=== PATIENT | female | born 2000 | race Hispanic/Latino ===

== ENCOUNTER 2025-01-23 20:23 | Outpatient (CLI) ==
[~2025-01-23] VITALS: Ht 157.5 cm; Wt 78.0 kg
[2025-01-23 20:45] VITALS: BP 128/71
== END 2025-01-23 21:15 | disposition home or self-care (01) ==
LOC: M LDO 20:23
PROVIDERS: ATTEND Advanced Practice Midwife
DX: O26.893 Other specified pregnancy related conditions, third trimester (principal); R10.30 Lower abdominal pain, unspecified; M54.50 Low back pain, unspecified; Z3A.37 37 weeks gestation of pregnancy
CPT/HCPCS: 59025; 87081; G0463

== ENCOUNTER 2025-02-09 02:42 | Emergency (ER) | payer OTHER, SELFPAY ==
[~2025-02-09] VITALS: Ht 157.5 cm; Wt 85.5 kg
[2025-02-09 02:45] VITALS: BP 142/83; TEMP 97.7; O2SAT 100
[2025-02-09] MEDS ORDERED: PRENTAB9 PO (07:26)
[2025-02-10] MEDS ORDERED: ACET-907 PO (06:51)
[2025-02-10] MEDS ORDERED: IBUP600T42 PO (06:51)
== END 2025-02-09 02:44 | disposition admitted as inpatient to this hospital (09) ==
LOC: M ED 02:42
DX: Z53.21 Procedure and treatment not carried out due to patient leaving prior to being seen by health care provider (principal)

== ENCOUNTER 2025-02-09 02:51 | Inpatient (IN) | payer OTHER, SELFPAY ==
[2025-02-09] VITALS (70 sets, daily range): BP systolic 96–150; BP diastolic 53–88; O2SAT 99
[~2025-02-09] VITALS: Ht 157.5 cm; Wt 89.9 kg
[2025-02-09] MEDS ORDERED: METHYLERGONOVINE MALEATE 0.2 MG/ML 1 ML VIAL IM PRN (07:05)
[2025-02-09] MEDS ORDERED: OXYTOCIN DRIP 30 UNITS in IV 1 EA IV PRN (07:05)
[2025-02-09] MEDS ORDERED: CARBOPROST TROMETHAMINE 250 MCG/ML AMP IM PRN (07:05)
[2025-02-09] MEDS ORDERED: LIDOCAINE 1% MDV 20 ML VIAL INFIL PRN (07:05)
[2025-02-09] MEDS ORDERED: TRANEXAMIC ACID INJection 1,000 MG in NS 100 ML IV PRN (07:05)
[2025-02-09] MEDS ORDERED: PRENTAB9 PO (07:26)
[2025-02-09] MEDS ORDERED: HOME MED LIST COMPLETE! XX SCH (07:30)
[2025-02-09 08:13] LABS: PLATELET COUNT, AUTOMATED 188 10^3/uL (150-450)
[2025-02-09] MEDS ORDERED: diphenhydrAMINE 50 MG/ML VIAL IV PRN (08:15)
[2025-02-09] MEDS ORDERED: LR 500 ML IV PRN (08:15)
[2025-02-09] MEDS ORDERED: EPIDURAL/PCA KEYS XX PRN (08:15)
[2025-02-09] MEDS ORDERED: NALOXONE INJ 0.4 MG/1 ML VIAL IV PRN (08:15)
[2025-02-09] MEDS ORDERED: ONDANSETRON 4MG/2ML VIAL IV PRN (08:15)
[2025-02-09] MEDS: LR 1,000 ML IV SCH (08:23)
[2025-02-09] MEDS ORDERED: FENTANYL 2 MCG/ML ROPIVACAINE 0.2% IN 0.9% NACL 100 ML IVBAG As Ordered ONE (08:28)
[2025-02-09] MEDS: FENTANYL/ROPIVACAINE/NACL BAG 100 ML EPIDURAL SCH (08:50)
[2025-02-09 09:09] LABS: HIV 1&2 SCREEN NEGATIVE (NEGATIVE)
[2025-02-09 09:17] LABS: HEPATITIS C VIRUS ABY INDEX 0.04 INDEX (<0.8)
[2025-02-09] MEDS: OXYTOCIN DRIP 30 UNITS in IV 1 EA IV SCH (11:57)
[2025-02-09] MEDS ORDERED: ACETAMINOPHEN 500 MG TAB PO PRN (17:10)
[2025-02-09] MEDS ORDERED: DIBUCAINE 1% OINTMENT 30 GM TOP PRN (17:10)
[2025-02-09] MEDS ORDERED: RHOGAM 300MCG (1500IU) INJ IM SCH (17:10)
[2025-02-09] MEDS ORDERED: ACETAMINOPHEN 325 MG TAB PO PRN (17:10)
[2025-02-09] MEDS ORDERED: IBUPROFEN 600 MG TAB PO PRN (17:10)
[2025-02-09] MEDS: METHYLERGONOVINE MALEATE 0.2 MG TAB PO PRN (18:11)
[2025-02-10 05:50] VITALS: BP 140/77; O2SAT 99
[2025-02-10] MEDS ORDERED: IBUP600T42 PO (06:51)
[2025-02-10] MEDS ORDERED: ACET-907 PO (06:51)
[2025-02-10] MEDS: PRENATAL VITAMINS CHEWABLE TABLET PO SCH (09:35)
[2025-02-10 18:00] VITALS: BP 130/83; O2SAT 97
[2025-02-10 19:39] VITALS: BP 130/83; TEMP 98.4; O2SAT 97
[2025-02-11] MEDS: MEASLES,MUMPS,RUBELLA VACCINE INJ (MMR-II) SC.IMMUN ONE (03:08)
[2025-02-11 05:25] VITALS: BP 123/63; O2SAT 97
[2025-02-11] MEDS: IBUPROFEN 800 MG TAB PO PRN (08:08)
[2025-02-11] MEDS: DOCUSATE SODIUM 100 MG CAPSULE PO PRN (08:08)
== END 2025-02-11 10:30 | disposition home or self-care (01) | DRG 807 ==
LOC: M LDO 02:51 → M LDI 07:07 → M OBS 16:50 → M LDI 17:04 → M OBS 19:23
PROVIDERS: ADMIT Advanced Practice Midwife; ATTEND Specialist
PROC: 10E0XZZ Delivery of Products of Conception, External Approach (ICD-10-PCS; principal; 2025-02-09)
PROC: 10907ZC Drainage of Amniotic Fluid, Therapeutic from Products of Conception, Via Natural or Artificial Opening (ICD-10-PCS; 2025-02-09)
DX: O48.0 Post-term pregnancy (principal); Z37.0 Single live birth; Z3A.40 40 weeks gestation of pregnancy